=== PATIENT | female | born 1995 | race American Indian/Alaskan Native ===

== ENCOUNTER 2021-02-12 18:08 | Emergency (ER) | payer MEDICAID ==
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
== END 2021-02-12 19:30 | disposition home or self-care (01) ==
LOC: DL.ED 18:08
DX: S01.01XA Laceration without foreign body of scalp, initial encounter (principal); S50.12XA Contusion of left forearm, initial encounter; Y04.0XXA Assault by unarmed brawl or fight, initial encounter
CPT/HCPCS: 12002; 99283; 99283-25

== ENCOUNTER 2022-04-23 16:18 | Emergency (ER) | payer MEDICAID ==
[2022-04-23] MEDS ORDERED: Ondansetron 4 MG Tab.DIS PO ONE (16:19)
[2022-04-23] MEDS ORDERED: Sodium Chloride 0.9% 1,000 ML IV ONE (16:40)
[2022-04-23] MEDS ORDERED: GI Cocktail Oral Solution 30 ML PO ONE (16:40)
[2022-04-23] MEDS ORDERED: Ondansetron 4 MG/2 ML SDV IVPUSH ONE (16:40)
[2022-04-23 17:00] LABS: AMPHETAMINES,URINE NEGATIVE (NEGATIVE); BARBITURATES,URINE NEGATIVE (NEGATIVE); BENZODIAZEPINE,URINE NEGATIVE (NEGATIVE); MDMA (ECSTASY), URINE NEGATIVE (NEGATIVE); METHADONE,URINE NEGATIVE (NEGATIVE); METHAMPHETAMINES,URINE NEGATIVE (NEGATIVE); OPIATES,URINE NEGATIVE (NEGATIVE); OXYCODONE,URINE NEGATIVE (NEGATIVE); PHENCYCLIDINE,URINE NEGATIVE (NEGATIVE); TCA,URINE NEGATIVE (NEGATIVE)
[2022-04-23 17:20] LABS: ANION GAP 18.7 mEq/L (7-13); CHLORIDE,CL 102 mmol/L (98-107); SODIUM,NA 141 mmol/L (136-145)
[2022-04-23] MEDS ORDERED: Ondansetron 4 MG Tab.DIS ONE (18:48)
== END 2022-04-23 18:51 | disposition home or self-care (01) ==
LOC: DL.ED 16:18
DX: K52.9 Noninfective gastroenteritis and colitis, unspecified (principal); R11.14 Bilious vomiting; Z90.49 Acquired absence of other specified parts of digestive tract; Z79.899 Other long term (current) drug therapy; Z91.041 Radiographic dye allergy status
CPT/HCPCS: 36415; 74176; 80053; 80305; 80307; 81001; 81025; 82150; 83605; 83690; 83735; 85025; 86140; 96361; 96374; 99284; A9270; J2405; J7030

== ENCOUNTER 2022-07-04 16:58 | Emergency (ER) | payer MEDICAID ==
[2022-07-04] MEDS ORDERED: Penicillin G Benzathine/Procaine 600-600 1.2 Millunits/2 ML Syringe IM ONE (17:50)
== END 2022-07-04 18:10 | disposition home or self-care (01) ==
LOC: DL.ED 16:58
DX: J02.0 Streptococcal pharyngitis (principal)
CPT/HCPCS: 96372; 99282; 99283; J0558

== ENCOUNTER 2022-08-08 11:51 | Emergency (ER) | payer MEDICAID ==
[2022-08-08 13:02] LABS: CORONAVIRUS COVID-19 NAA NEGATIVE (NEGATIVE); RESPIRATORY SYNCYTIAL VIR NAA NEGATIVE (NEGATIVE)
== END 2022-08-08 14:59 | disposition home or self-care (01) ==
LOC: DL.ED 11:51
DX: J06.9 Acute upper respiratory infection, unspecified (principal); H66.92 Otitis media, unspecified, left ear; Z91.041 Radiographic dye allergy status; Z79.899 Other long term (current) drug therapy; Z90.49 Acquired absence of other specified parts of digestive tract; Z20.822 Contact with and (suspected) exposure to COVID-19
CPT/HCPCS: 0241U; 87081; 87430; 99283